=== PATIENT | female | born 1985 ===

== ENCOUNTER 2021-04-28 11:23 | Outpatient (CLI) | payer SELFPAY ==
[2021-04-28 12:00] VITALS: BP 112/72
[2021-04-28] MEDS ORDERED: SODIUM CHLORIDE 0.9% 1000 ML 1,000 ML ONE (12:54)
[2021-04-28] MEDS ORDERED: LACTATED RINGERS 1,000 ML IV ONE (13:01)
[2021-04-28 13:28] LABS: Hematocrit 31.8 % (30.3-42.9); Hemoglobin 10.6 gm/dl (10.1-14.3); Mean Corpuscular HGB Conc 33 % (30-34); Mean Corpuscular Volume 84 fl (79-97); Platelet Count 238 K/mm3 (140-440); Red Blood Count 3.78 M/mm3 (3.65-5.03); Red Cell Distribution Width 14.1 % (13.2-15.2)
--- NOTE | 2021-04-28 13:44 | Ultrasound Report ---
ULTRASOUND OBSTETRIC LIMITED ULTRASOUND BIOPHYSICAL PROFILE INDICATION / CLINICAL INFORMATION: well being. Clinical Gestational Age (GA) in weeks, days: 36.0 TECHNIQUE: Transabdominal. COMPARISON: None available. FINDINGS: BREATHING MOVEMENT = 2 GROSS BODY MOVEMENT = 2 TONE = 2 QUALITATIVE AMNIOTIC FLUID VOLUME = 2 TOTAL BIOPHYSICAL SCORE = 8/8 HEART RATE (beats per minute): 152 AMNIOTIC FLUID INDEX (cm) = 11.1 (normal = 7-24 cm) PRESENTATION: Cephalic. ADDITIONAL FINDINGS: None. IMPRESSION: 1. Biophysical Score = 8/8 2. Viable intrauterine in the cephalic position. Signer Name: Olman Jiang MD Signed: 04/28/2021 1:39 PM Workstation Name: [id number]
[2021-04-28 13:45] LABS: Alanine Aminotransferase 9 units/L (7-56); Albumin 3.7 g/dL (3.9-5); Blood Urea Nitrogen 8 mg/dL (7-17); Calcium 9.1 mg/dL (8.4-10.2); Hemolysis Index 3
[2021-04-28 13:49] LABS: BUN/Creatinine Ratio 16
[2021-04-28 14:32] LABS: Bacteria,Urine 2+ /HPF (Negative); Bilirubin,Urine NEG (Negative); Blood,Urine SM (Negative); Color,Urine Yellow (Yellow); Mucus,Urine FEW /HPF; Urobilinogen,Urine < 2.0 mg/dL (<2.0)
== END 2021-04-28 16:30 | disposition home or self-care (01) ==
LOC: EDBD 11:23 → TRG 11:23 → APU 11:24 → TRG 16:30
PROVIDERS: ATTEND Obstetrics & Gynecology
DX: O62.9 Abnormality of forces of labor, unspecified (principal); O09.523 Supervision of elderly multigravida, third trimester; O24.419 Gestational diabetes mellitus in pregnancy, unspecified control; Z3A.36 36 weeks gestation of pregnancy
CPT/HCPCS: 36415; 59025; 76815; 76819; 80053; 81001; 82962; 85027; 86850; 86900; 86901; 96360

== ENCOUNTER 2021-05-24 08:54 | Inpatient (IN) | payer SELFPAY ==
[2021-05-24] MEDS ORDERED: METOCLOPRAMIDE 10 MG/2 ML INJ IV NR (09:30)
[2021-05-24] MEDS ORDERED: FAMOTIDINE 20 MG/2 ML INJ IV NR (09:30)
[2021-05-24] MEDS ORDERED: BICITRA ORAL LIQD 30ML PO NR (09:30)
[2021-05-24] MEDS ORDERED: OXYTOCIN DRIP 30 UNITS/500 ML BAG IV SCH ×2 (10:00→12:00)
[2021-05-24] MEDS ORDERED: LACTATED RINGERS 1,000 ML IV SCH ×2 (10:00→12:00)
[2021-05-24] MEDS ORDERED: ceFAZolin/Water 2 GM/20 ML 2 GM/20 ML SYRINGE IV NR (10:00)
[2021-05-24 10:19] LABS: Basophils % (Auto) 0.4 % (0.0-1.8); Eosinophils # (Auto) 0.2 K/mm3 (0.0-0.4); Hematocrit 32.3 % (30.3-42.9); Hemoglobin 10.2 gm/dl (10.1-14.3); Lymphocytes # (Auto) 1.8 K/mm3 (1.2-5.4); Lymphocytes % (Auto) 25.5 % (13.4-35.0); Mean Corpuscular HGB Conc 32 % (30-34); Mean Corpuscular Volume 83 fl (79-97); Monocytes # (Auto) 0.4 K/mm3 (0.0-0.8); Monocytes % (Auto) 5.3 % (0.0-7.3); Platelet Count 212 K/mm3 (140-440); Red Blood Count 3.89 M/mm3 (3.65-5.03); Red Cell Distribution Width 14.9 % (13.2-15.2)
[2021-05-24] MEDS ORDERED: BUPIVACAINE/PF (0.5%) 5 MG/1 ML 30 ML VIAL INFILTRATI ONE (10:29)
[2021-05-24] MEDS ORDERED: ONDANSETRON 4 MG/2 ML INJ ONE (10:29)
[2021-05-24] MEDS ORDERED: miSOPROStol 200 MCG TAB PR PRN (11:12)
[2021-05-24] MEDS ORDERED: TERBUTALINE 1 MG/1 ML INJ SUB-Q PRN (11:12)
[2021-05-24] MEDS ORDERED: CARBOPROST TROMETHAMINE 250 MCG/1 ML INJ IM PRN (11:12)
[2021-05-24] MEDS ORDERED: LIDOCAINE (2%) 20 MG/1 ML VIAL 20 ML MDV INFILTRATI NR (11:12)
[2021-05-24] MEDS ORDERED: LOPERAMIDE 2 MG CAP PO PRN (11:12)
--- NOTE | 2021-05-24 11:18 | History and Physical Report ---
History of Present Illness Date of examination: 05/24/21 Date of admission: 05/24/21 08:58 History of present illness: 35-year-old -0-0-3 at 39-4/7 weeks here for elective repeat section and bilateral tubal ligation. care at [facility]. records in chart. Past History Past Surgical History: section Social history: no significant social history - Obstetrical History Expected Date of Delivery: 05/26/21 Actual Gestation: 39 Week(s) 5 Day(s) : 4 Para: 3 Medications and Allergies Allergies Allergy/AdvReac Type Severity Reaction Status Date / Time No Known Allergies Allergy Verified 05/24/21 09:24 Home Medications Medication Instructions Recorded Confirmed Last Taken Type Nitrofurantoin Gaston/M-Cryst 100 mg PO Q12HR 7 Days #14 capsule 04/28/21 05/24/21 1 Week Ago Rx [Macrobid CAP] ~05/17/21 Active Meds: Active Medications Citric Acid/Sodium Citrate (Bicitra Oral Liqd 30ml) 30 ml PO ONCE NR Stop: 05/24/21 16:00 Last Admin: 05/24/21 10:46 Dose: 30 ml Documented by: Famotidine (Famotidine 20 Mg/2 Ml Inj) 20 mg IV ONCE NR Stop: 05/24/21 16:00 Last Admin: 05/24/21 10:46 Dose: 20 mg Documented by: Lactated Ringer's (Lactated Ringers) 1,000 mls @ 2,250 mls/hr IV PREOP MCKENNA Stop: 05/25/21 10:27 Last Admin: 05/24/21 10:37 Dose: 2,250 mls/hr Documented by: Oxytocin/Sodium Chloride (Pitocin/Ns 30 Unit/500ml) 30 units in 500 mls @ 0 mls/hr IV TITR MCKENNA; Protocol Cefazolin Sodium (Ancef/Sterile Water 2 Gm/20 Ml) 2 gm in 20 mls @ 80 mls/hr IV PREOP NR; Protocol Stop: 05/24/21 20:00 Metoclopramide HCl (Metoclopramide 10 Mg/2 Ml Inj) 10 mg IV ONCE NR Stop: 05/24/21 16:00 Last Admin: 05/24/21 10:46 Dose: 10 mg Documented by: - Vital Signs Vital signs: Vital Signs Pulse BP 80 123/79 05/24/21 09:15 05/24/21 09:15 Temp Pulse Resp BP Pulse Ox 97.6 F 76 123/79 100 05/24/21 09:22 05/24/21 11:16 05/24/21 09:15 05/24/21 11:16 - Physical Exam Breasts: Positive: deferred Cardiovascular: Regular rate Lungs: Positive: Clear to auscultation Abdomen: Positive: normal appearance, soft, normal bowel sounds Genitourinary (Female): Positive: normal external genitalia, normal perenium Vagina: Positive: normal moisture Uterus: Positive: enlarged Adnexa: both: normal Anus/Rectum: Positive: normal perianal skin, heme negative Extremities: Positive: normal Deep Tendon Reflex Grade: Normal +2 - Obstetrical FHR: category 1 Results Result Diagrams: 05/24/21 09:44 Abnormal lab results 05/24/21 Range/Units 09:44 MCH 26 L (28-32) pg All other labs normal. Assessment and Plan PREVIOUS C/SECTIONX2 MULTIPARITY, DESIRES PERMANENT SURGICAL STERILIZATION NPO, [employer] CONSULTANT TO OR FOR PROCEDURE INFORMED CONSENT OBTAINED Antonio FLETCHER MD
[2021-05-24] MEDS ORDERED: ePHEDrine SULFATE 50 MG/1 ML INJ IV PRN (11:30)
[2021-05-24] MEDS ORDERED: fentaNYL 100 MCG/2 ML INJ IV PRN (11:30)
[2021-05-24] MEDS ORDERED: BUTORPHANOL 2 MG/1 ML INJ IV PRN ×2 (11:30)
[2021-05-24] MEDS ORDERED: METHYLERGONOVINE MALEATE 0.2 MG/ML VIAL IM PRN (11:30)
[2021-05-24] MEDS ORDERED: NalbUPHINE 10 MG/1 ML INJ IV PRN (11:30)
[2021-05-24] MEDS ORDERED: ACETAMINOPHEN 325 MG TAB PO PRN ×2 (11:30→13:28)
[2021-05-24] MEDS ORDERED: OXYTOCIN 10 UNIT/1 ML INJ IM PRN (11:30)
[2021-05-24] MEDS ORDERED: SODIUM CHLORIDE 0.9% 500 ML 500 ML IV ONE (12:09)
--- NOTE | 2021-05-24 12:12 | Procedure Note ---
OB Delivery Note - Delivery Date of Delivery: 05/24/21 Surgeon: ALONDRA FLETCHER - Section Preop diagnosis: desires sterilization Postop diagnosis: same section procedure: repeat low transverse, bilateral tubal ligation Disposition: PACU Complications: none Narrative: Preop diagnosis: IUP at 36.4 weeks, previous sectionx2:Multiparity desires permanent surgical sterilization Postop diagnosis: Same,delivered Procedure: Repeat low transverse section via Pfannenstiel incision with Mofied Neville Bilateral Tubal ligation Surgeon: Dr. Alondra Fletcher Anesthesia spinal Complications dense abdominal pelvic adhesions EBL 850ml IV fluids 2000mL Urine output 550mL, clear Drains Lynn to gravity Findings: Viable male with weight 3530gms and 9/9, normal uterus tubes and ovaries bilaterally Procedure: Patient was consented in OB triage, taken to the operating room where she received excellent spinal anesthesia. She was then placed in the dorsal supine position with a leftward tilt. The abdomen was prepped and draped in a sterile fashion, and a timeout was verified. Adequate anesthesia was confirmed prior to the skin incision. A Pfannenstiel skin incision was made with a scalpel taken down to the underlying structures and the fascia was incised in the midline. The incision was extended laterally with curved Pandey scissors, the superior and inferior aspects of the fascial incisions were grasped with Kvng clamps and the rectus muscles dissected sharply. The abdomen was entered bluntly in the midline carried down inferiorly with good visualization of the bladder. Extensive abdominal pelvic adhesions were taken down both bluntly and sharply to allow for adequate visualization and exteriorization of the uterus. The vesicouterine peritoneum was identified and tented with Malagasy forceps and incised in the midline with Metzenbaum scissors and the vesicouterine peritoneum taken down sharply. The uterine incision was then made sharply with a scalpel. The inferior and superior aspect of the uterine incisions were extended bluntly, the baby's head was delivered atraumatically. The remainder of the delivery was uncomplicated, no nuchal cord. The cord was clamped and cut and baby handed to waiting NICU team. An intact placenta with three-vessel cord delivered manually. The uterus was then cleared of all clots and debris and the uterus exteriorized. The uterine incision was closed with 0 vicryl and excellent hemostasis was achieved. Atte ntion then turned to the fallopian tubes which were suture ligated in the usual fashion with excellent hemostasis. The areas of abrasion on the uterus second to adhesiolysis were closed with 0 Vicryl and large [id number]. The abdomen was then irrigated with warm normal saline and the uterus placed back into the abdomen atraumatically. A procoagulant was placed and a second look at the uterine incision assured hemostasis. The fascia was then closed in a running fashion with 0 Vicryl, and the skin closed with 4-0 Monocryl. A pressure dressing was applied. All sponge needle and instrument counts were correct x2. There were no complications. Mom and baby stable to PACU. EBL 850 mL Antonio Fletcher MD
[2021-05-24] MEDS ORDERED: PHENYLEPHRINE/NS 1,000 MCG/10 ML SYRINGE (OR USE) IV ONE ×2 (12:24→13:14)
[2021-05-24] MEDS ORDERED: LACTATED RINGERS 1,000 ML ONE (12:32)
[2021-05-24] MEDS ORDERED: dexAMETHasone 20 MG/5 ML VIAL ONE (12:58)
[2021-05-24] MEDS ORDERED: SODIUM CHLORIDE 0.9% 100 ML ONE (13:14)
[2021-05-24] MEDS ORDERED: PROMETHAZINE 25 MG RECT SUPP PR PRN (13:28)
[2021-05-24] MEDS ORDERED: NALOXONE 0.4 MG/1 ML INJ IV PRN (13:28)
[2021-05-24] MEDS ORDERED: KETOROLAC 30 MG/1 ML INJ IV PRN ×2 (13:28)
[2021-05-24] MEDS ORDERED: ONDANSETRON 4 MG/2 ML INJ IV PRN (13:28)
[2021-05-24] MEDS ORDERED: HYDROcodone/ACETAMINOPHEN 5-325 MG TAB PO PRN (13:28)
[2021-05-24] MEDS ORDERED: LANOLIN/ZINC/DIMETHICONE (LANSINOH) 7 GM TP PRN (13:28)
[2021-05-24] MEDS ORDERED: WITCH HAZEL/ GLYCERIN PAD TP PRN (13:28)
[2021-05-24] MEDS ORDERED: MORPHINE 2 MG/1 ML INJ IV PRN (13:28)
[2021-05-24] MEDS ORDERED: HYDROCORTISONE 25 MG RECTAL SUPP PR PRN (13:28)
[2021-05-24] MEDS ORDERED: MORPHINE 4 MG/1 ML INJ IV PRN (13:28)
[2021-05-24] MEDS ORDERED: MINERAL OIL 30 ML ORAL LIQD PO PRN (22:00)
[2021-05-25 01:47] LABS: Hematocrit 28.7 % (30.3-42.9)
[2021-05-25] MEDS: oxyCODONE /ACETAMINOPHEN 5-325MG TAB PO PRN ×3 (04:09→23:07)
[2021-05-25] MEDS: IBUPROFEN 800 MG TAB PO PRN (07:53)
--- NOTE | 2021-05-25 08:48 | Progress Note ---
Assessment and Plan A: S/P Repeat LTCS Asymptomatic anemia P: Continue routine pp orders Ferrous Sulfate prescribed Encourage ambulation D/C home within 24-48 hrs if stable Subjective - Subjective Date of service: 05/25/21 Principal diagnosis: s/p repeat LTCS with BTL Patient reports: appetite normal, pain well controlled, flatus, other (Lynn was just removed. Pt hasn't ambulated or voided yet.) [place]: doing well, bottle feeding Objective - Vital Signs Latest vital signs: Vital Signs Temp Pulse Resp BP Pulse Ox Pulse Ox 05/25/21 06:01 98.5 F 77 18 110/67 96 05/25/21 05:00 99 05/25/21 04:09 18 100 05/25/21 01:16 98.2 F 73 18 109/58 96 05/24/21 23:04 18 99 05/24/21 21:22 98.3 F 70 18 118/65 98 05/24/21 21:19 99 05/24/21 20:49 99 05/24/21 19:40 99 05/24/21 15:19 98.4 F 20 99/61 05/24/21 11:31 71 100 05/24/21 11:26 75 100 05/24/21 11:21 78 100 05/24/21 11:16 76 100 05/24/21 11:11 77 100 05/24/21 11:06 77 100 05/24/21 11:01 78 100 05/24/21 10:56 74 100 05/24/21 10:51 88 100 05/24/21 10:46 76 100 05/24/21 10:41 76 100 05/24/21 10:36 76 99 05/24/21 10:31 79 98 05/24/21 10:26 69 100 05/24/21 10:21 80 100 05/24/21 10:16 83 100 05/24/21 10:11 86 99 05/24/21 10:06 87 99 05/24/21 10:01 83 100 05/24/21 09:56 76 99 05/24/21 09:51 75 100 05/24/21 09:46 76 100 05/24/21 09:41 81 100 05/24/21 09:36 75 100 05/24/21 09:31 79 100 01/03/22 09:26 71 100 05/24/21 09:22 97.6 F 05/24/21 09:21 73 99 05/24/21 09:16 77 99 05/24/21 09:15 80 123/79 Intake and Output 05/24/21 05/25/21 05/25/21 22:59 06:59 14:59 Intake Total 200 320 Output Total 1400 800 Balance -1200 -480 Intake: Oral 200 200 Intake, Free Water 120 Output: Urine 1400 800 Indwelling Catheter 900 400 Uretheral (Lynn) 500 400 Other: Total, Intake Amount 200 200 Total, Output Amount 400 400 - Exam Breasts: Present: normal Abdomen: Present: normal appearance, soft, normal bowel sounds Vulva: both: normal Uterus: Present: normal, firm, fundal height below umbilicus Extremities: Present: normal Incision: Present: normal, dry, intact - Labs Labs: Abnormal lab results 05/24/21 05/24/21 05/25/21 Range/Units 09:44 09:44 01:31 Hgb 9.0 L (10.1-14.3) gm/dl Hct 28.7 L (30.3-42.9) % MCH 26 L (28-32) pg Crossmatch See Detail
[2021-05-25] MEDS ORDERED: FERROUS SULFATE 325 MG TAB PO SCH (09:00)
[2021-05-25] MEDS: SIMETHICONE 80 MG CHEW TAB PO PRN ×3 (11:12→20:21)
[2021-05-25] MEDS: IBUPROFEN 600 MG TAB PO PRN (13:16)
[2021-05-25] MEDS: SENNOSIDES 8.6 MG TAB PO PRN (15:02)
[2021-05-25] MEDS: MAGNESIUM HYDROXIDE (MOM) ORAL LIQD UDC PO PRN (20:22)
[2021-05-26] MEDS: IBUPROFEN 800 MG TAB PO PRN (03:24)
[2021-05-26] MEDS ORDERED: TETANUS,DIPH,PERTUSS(ACELL) VACCINE 0.5 ML SYRINGE IM ONE (06:00)
[2021-05-26] MEDS: IBUPROFEN 600 MG TAB PO PRN (08:06)
[2021-05-26] MEDS: oxyCODONE /ACETAMINOPHEN 5-325MG TAB PO PRN ×2 (09:29→16:05)
[2021-05-26] MEDS: SIMETHICONE 80 MG CHEW TAB PO PRN (09:29)
--- NOTE | 2021-05-26 10:25 | Progress Note ---
Assessment and Plan A: POD #2 Asymptomatic Anemia Negative Flatus P: Follow Routine PostOp Orders Continue Milk of Magnesia and Mylicon as ordered Encourage Increased Ambulation Subjective - Subjective Date of service: 05/26/21 Principal diagnosis: s/p repeat LTCS with BTL Patient reports: appetite normal, voiding normally, pain well controlled, flatus, ambulating normally : doing well, bottle feeding Objective - Vital Signs Latest vital signs: Vital Signs Temp Pulse Resp BP BP Pulse Ox Pulse Ox 05/26/21 08:15 99 05/26/21 07:20 98.0 F 78 18 122/72 97 05/26/21 04:24 18 05/26/21 03:24 20 05/26/21 00:23 97.9 F 83 20 112/65 98 05/26/21 00:07 18 05/25/21 23:07 20 05/25/21 21:21 18 05/25/21 20:21 20 05/25/21 20:20 100 05/25/21 15:20 97.9 F 77 18 108/58 99 Intake and Output 05/25/21 05/26/21 05/26/21 22:59 06:59 14:59 Intake Total 440 480 240 Output Total 500 Balance -60 480 240 Intake: Oral 440 240 Intake, Free Water 480 Output: Urine 500 Void 500 Other: Total, Intake Amount 320 240 Total, Output Amount 500 # Voids Void 1 1 1 - Exam Breasts: Present: normal Cardiovascular: Present: Regular rate Lungs: Present: Clear to auscultation, Normal air movement Abdomen: Present: normal appearance, soft, normal bowel sounds Uterus: Present: normal, firm, fundal height above umbilicus Extremities: Present: normal Incision: Present: normal, dry, intact - Labs Labs: Abnormal lab results 05/24/21 Range/Units 09:44 Crossmatch See Detail
[2021-05-26] MEDS: SENNOSIDES 8.6 MG TAB PO PRN (10:32)
[2021-05-26] MEDS: MAGNESIUM HYDROXIDE (MOM) ORAL LIQD UDC PO PRN (10:32)
[2021-05-26] MEDS ORDERED: FLU VACC QUAD 2021-22(6MOS UP)/PF 60 MCG/0.5 ML SYRINGE IM ONE (12:00)
--- NOTE | 2021-05-26 14:58 | Event Note ---
Date: 05/26/21 Patient began to passing gas; and request to go home.
--- NOTE | 2021-05-26 15:00 | Discharge Summary ---
Providers - Providers Date of Admission: 05/24/21 08:58 Date of discharge: 05/26/21 Attending physician: ALONDRA FLETCHER MD Primary care physician: ALONDRA FLETCHER MD Hospitalization Reason for admission: section Delivery: Procedure: repeat low transverse Episiotomy: none Laceration: none Incision: normal, dry, intact Other procedures: none complications: none Discharge diagnosis: IUP at term delivered Condition at discharge: Good Disposition: 01 HOME / SELF CARE / HOMELESS Plan - Discharge Medications Prescriptions: Ibuprofen [Motrin] 600 mg PO Q8H PRN #60 tablet PRN Reason: Pain oxyCODONE /ACETAMINOPHEN [Percocet 5/325] 1 tab PO Q6HR PRN #20 tablet PRN Reason: Pain - Provider Discharge Summary Activity: routine, no sex for 6 weeks, no heavy lifting 4 weeks, no strenuous ex ercise Diet: routine Instructions: routine Additional instructions: [] Smoking cessation referral if applicable(refer to patient education folder for contact #) [] Refer to [facility]'s [facility] Booklet Call your doctor immediately for: * Fever > 100.5 * Heavy vaginal bleeding ( >1 pad per hour) * Severe persistent headache * Shortness of breath * Reddened, hot, painful area to leg or breast * Drainage or odor from incision. * Keep incision clean and dry at all times and follow doctor's instructions regarding bathing/showering - Follow up plan Follow up: ALONDRA FLETCHER MD [Primary Care Provider] - 7 Days
[2021-05-26 16:07] VITALS: BP 119/71
== END 2021-05-26 16:31 | disposition home or self-care (01) | DRG 785 ==
LOC: APU 08:54 → TRG 08:54 → APU 08:58 → OB 15:18
PROVIDERS: ADMIT Obstetrics & Gynecology; ATTEND Obstetrics & Gynecology
PROC: 10D00Z1 Extraction of Products of Conception, Low, Open Approach (ICD-10-PCS; principal; 2021-05-24)
PROC: 0UB70ZZ Excision of Bilateral Fallopian Tubes, Open Approach (ICD-10-PCS; 2021-05-24)
PROC: 30233N1 Transfusion of Nonautologous Red Blood Cells into Peripheral Vein, Percutaneous Approach (ICD-10-PCS; 2021-05-24)
DX: O34.211 Maternal care for low transverse scar from previous cesarean delivery (principal); Z20.822 Contact with and (suspected) exposure to COVID-19; Z3A.39 39 weeks gestation of pregnancy; Z37.0 Single live birth; O90.81 Anemia of the puerperium; Z30.2 Encounter for sterilization
CPT/HCPCS: 36415; 85014; 85018; 85025; 86592; 86850; 86900; 86901; 86920; 87806; 88302; 90471; 90686; 90715; G0378; J3490; J7121; J1100; J1885; J2270; J2370; J2405; J2765; J7120; U0003